=== PATIENT | male | born 1980 | race Two or more races ===

== ENCOUNTER 2023-03-07 15:54 | Emergency (ER) | payer SELFPAY ==
[~2023-03-07] VITALS: Ht 172.7 cm; Wt 77.0 kg
[2023-03-07 16:35] VITALS: BP 126/87; RESP 16; TEMP 98.9; O2SAT 99
[2023-03-07 16:37] VITALS: PULSE 77
[2023-03-07] MEDS ORDERED: TETRACAINE 0.5% OPHTH DROPS 4ML EACHEYE ONE (18:30)
[2023-03-07] MEDS ORDERED: BALANCED SALT IRRIG SOLN 15ML IR ONE (18:30)
[2023-03-07] MEDS ORDERED: FLUORESCEIN SODIUM 1MG/STRIP LEFTEYE ONE (18:30)
[2023-03-07] MEDS ORDERED: ERYT1OIN6 LEFTEYE (19:57)
[2023-03-07] MEDS ORDERED: SULF1TAB48 MT (19:57)
[2023-03-07] MEDS ORDERED: ERYTHROMYCIN BASE 0.5% OPHTH OINT 3.5GM LEFTEYE ONE (20:00)
[2023-03-07] MEDS ORDERED: SULFAMETHOXAZOLE/TRIMETHOPRIM 800/160MG TABLET PO ONE (20:00)
[2023-03-11] MEDS ORDERED: SULF1TAB48 MT (18:42)
[2023-03-11] MEDS ORDERED: AMOX1TAB16 MT (18:42)
== END 2023-03-07 20:50 | disposition home or self-care (01) ==
LOC: ER 15:54
DX: H10.9 Unspecified conjunctivitis (principal); L03.213 Periorbital cellulitis; J45.909 Unspecified asthma, uncomplicated
CPT/HCPCS: 99281; 99283